=== PATIENT | male | born 1975 | race Caucasian/White ===

== ENCOUNTER 2017-10-09 21:53 | Emergency (ER) ==
[2017-10-09 22:01] VITALS: BP 128/74; TEMP 98; BMI 27.9
[2017-10-09] MEDS ORDERED: CLEOCIN 900 MG in SODIUM CHLORIDE 50 ML IV STA (22:07)
--- NOTE | 2017-10-09 22:12 | ED.PDOC ---
General ED Provider: Dr. MUKESH BROWNE-ER Chief Complaint: Extremity Swelling/Pain Stated Complaint: my leg is hot and swollen--i had to have the ankle monitor removed by the nurse Time Seen by Physician: 21:55 Mode of Arrival: Walk-In Information Source: Patient Exam Limitations: No limitations Primary Care Provider: Shena ROSE Nursing and Triage Documentation Reviewed and Agree: Yes Reviewed sepsis parameters & appropriate labs ordered?: Yes System Inflammatory Response Syndrome: Not Applicable Sepsis Protocol: For patient's 13 years and over: Temp is 96.8 and below OR 101 and greater Pulse >90 BPM Resp >20/minute Acutely Altered Mental Status Are patient's symptoms suggestive of a new infection, such as: -Pneumonia -Skin, Soft Tissue -Endocarditis -UTI -Bone, Joint Infection -Implantable Device -Acute Abdominal Infection -Wound Infection -Meningitis -Blood Stream Catheter Infection -Unknown Skin Complaint Exam - Skin/Soft Tissue Complaint/Exam Onset/Duration: 3 days Symptoms Are: Still present Timing: Constant Initial Severity: Mild Current Severity: Moderate Location: left lower leg Character: Reports: Redness, Swelling, Raised Aggravating: Reports: Touch Associated Signs and Symptoms: Reports: Tenderness, Red streaks. Denies: Fever , Chills, Itching, Drainage, Bruising, Joint swelling Related History: Reports: Similar episode Related Surgical History: Reports: None Recent Exposure to Others w/Similar Symptoms: No Skin Findings: Present: Erythema Joint Tenderness Present: No Differential Diagnoses: Cellulitis, Infection Review of Systems - Review Of Systems Constitutional: Reports: No symptoms Eyes: Reports: No symptoms Ears, Nose, Mouth, Throat: Reports: No symptoms Respiratory: Reports: No symptoms Cardiac: Reports: No symptoms GI: Reports: No symptoms : Reports: No symptoms Musculoskeletal: Reports: No symptoms Skin: Reports: Rash Neurological: Reports: No symptoms Endocrine: Reports: No symptoms Hematologic/Lymphatic: Reports: No symptoms All Other Systems: Reviewed and Negative Past Medical History - Past Medical History Previously Healthy: No Endocrine: Reports: Unknown Cardiovascular: Reports: Unknown Respiratory: Reports: Unknown Hematological: Reports: Unknown Gastrointestinal: Reports: Unknown Genitourinary: Reports: Unknown Neuro/Psych: Reports: Unknown Musculoskeletal: Reports: Unknown Cancer: Reports: Unknown - Surgical History General Surgical History: Reports: Unknown - Family History Family History: Reports: Unknown - Social History Smoking Status: Never smoker Hx Substance Use: No Alcohol Screening: Occasionally - Immunizations Tetanus Shot up to Date: No (unsure) Physical Exam - Physical Exam Appearance: Well-appearing, No pain distress, Well-nourished Eyes: DREW, EOMI, Conjunctiva clear ENT: Ears normal, Nose normal, Oropharynx normal Neck: Supple Respiratory: Airway patent, Breath sounds clear, Breath sounds equal, Respirations nonlabored Cardiovascular: RRR, Pulses normal, No rub, No murmur GI/: Soft, Nontender, No masses, Bowel sounds normal, No Organomegaly Musculoskeletal: Normal strength, ROM intact, No edema, No calf tenderness Skin: Warm (noting circumferential erythema below the knee and above the foot-- marked swelling and multiple scratches noted) Neurological: Sensation intact Psychiatric: Affect appropriate, Mood appropriate Critical Care Note - Critical Care Note Total Time (mins): 0 Course - Course Hematology/Chemistry: 10/09/17 22:25 10/09/17 22:25 Orders, Labs, Meds: Lab Review 10/09/17 10/09/17 10/09/17 22:25 22:25 22:25 WBC 9.19 RBC 4.99 Hgb 15.2 Hct 44.8 MCV 89.8 MCH 30.5 MCHC 33.9 RDW Coeff of Argenis 12.5 Plt Count 217 Immature Gran % (Auto) 0.1 Neut % (Auto) 71.9 Lymph % (Auto) 20.6 Cocke % (Auto) 6.9 Eos % (Auto) 0.3 Baso % (Auto) 0.2 Immature Gran # (Auto) 0.0 Neut # (Auto) 6.6 Lymph # (Auto) 1.9 Cocke # (Auto) 0.6 Eos # (Auto) 0.0 Baso # (Auto) 0.0 ESR 5 D-Dimer (Manual) 374.43 Sodium 140 Potassium 3.5 Chloride 101 Carbon Dioxide 26 Anion Gap 16.5 BUN 9 Creatinine 0.88 Estimated GFR (MDRD) 96.00 BUN/Creatinine Ratio 10.22 Glucose 78 Calcium 9.4 Total Bilirubin 0.8 AST 49 H ALT 85 H Alkaline Phosphatase 76 Total Protein 7.2 Albumin 4.0 Globulin 3.2 Albumin/Globulin Ratio 1.25 Orders Category Date Time Status ED IV/MEDIPORT/POWERPORT .ONCE EMERGENCY 10/09/17 22:07 Active BLOOD CULTURE (ED ONLY) Stat LAB 10/09/17 22:25 Received CBC W/ AUTO DIFF Stat LAB 10/09/17 22:25 Completed COMPREHENSIVE METABOLIC PANEL Stat LAB 10/09/17 22:25 Completed D-DIMER Stat LAB 10/09/17 22:25 Completed ESR Stat LAB 10/09/17 22:25 Completed 0.9 % Sodium Chloride [Saline Flush] MEDS 10/09/17 22:07 Ordered 1 syr IVF PRN PRN Clindamycin Phosphate Inj [Cleocin] MEDS 10/09/17 22:19 Discontinued 300 mg .ROUTE .STK-MED ONE Clindamycin Phosphate Inj [Cleocin] MEDS 10/09/17 22:21 Discontinued 600 mg .ROUTE .STK-MED ONE Clindamycin Phosphate Inj [Cleocin] 900 mg MEDS 10/09/17 22:07 Active 0.9 % Sodium Chloride [Sodium Chloride] 50 ml IV ONCE Medications Generic Name Dose Route Start Last Admin Trade Name Freq PRN Reason Stop Dose Admin Clindamycin Phosphate 900 mg/ 56 mls @ 50 mls/hr 10/09/17 22:07 10/09/17 22: 23 Sodium Chloride IV 10/09/17 23:14 50 mls/hr ONCE STA Administration Sodium Chloride 1 syr 10/09/17 22:07 Saline Flush IVF PRN PRN To flush IV i felt Shantanu needed to be admitted but he declines--i made him aware of worsening infection, sepsis and loss of limb but he declines admission and desires to leave [facility]) Vital Signs: Temp Pulse Resp BP Pulse Ox 10/09/17 21:54 98 F 110 H 20 128/74 95 Departure - Departure Time of Disposition: 23:13 Disposition: AMA Discharge Problem: Cellulitis of leg, left Condition: Good Pt referred to PMD for follow-up: Yes IPMP verified?: No Additional Instructions: clindamycin 300mg tid x 7 days--keep leg elevated and clean--recheck prn Allergies/Adverse Reactions: Allergies dexamethasone [From Decadron] Adverse Reaction (Verified 10/09/17 22:01) dexamethasone sod phosphate [From Decadron] Adverse Reaction (Verified 10/09/17 22:01) passes out Home Medications: Ambulatory Orders Omeprazole Magnesium [Prilosec Otc] 20 mg PO DAILY 10/09/17 Disposition Discussed With: Patient
[2017-10-09] MEDS ORDERED: CLEOCIN ONE ×2 (22:19→22:21)
== END 2017-10-09 23:17 | disposition left against medical advice (07) ==
LOC: ED 21:53
DX: L03.116 Cellulitis of left lower limb (principal)
CPT/HCPCS: 36415; 80053; 85025; 85379; 85651; 87040; 96365; 99283